=== PATIENT | female | born 1965 | race Asian ===

== ENCOUNTER 2022-01-14 10:38 | Outpatient (CLI) | payer OTHER ==
[2022-01-14 11:33] LABS: PARTIAL THROMBOPLASTIN TIME 26.7 SECONDS (24.5-33.6)
== END 2022-01-14 20:07 | disposition home or self-care (01) ==
LOC: US 10:38
PROVIDERS: ATTEND Family Medicine
DX: R18.8 Other ascites (principal)
CPT/HCPCS: 36415; 49080; 85610; 85730

== ENCOUNTER 2022-01-20 09:16 | Outpatient (CLI) | payer OTHER | END 2022-01-20 19:09 | disposition home or self-care (01) | LOC: US 09:16 | PROVIDERS: ATTEND Family Medicine | DX: R18.8 Other ascites (principal) ==

== ENCOUNTER 2022-02-17 08:46 | Outpatient (CLI) | payer OTHER | END 2022-02-17 21:38 | disposition home or self-care (01) | LOC: US 08:46 | PROVIDERS: ATTEND Family Medicine | DX: R18.8 Other ascites (principal) | CPT/HCPCS: 49082 ==

== ENCOUNTER 2023-05-05 12:05 | Emergency (ER) | payer OTHER ==
[~2023-05-05] VITALS: Ht 154.9 cm; Wt 59.0 kg
[2023-05-05 13:18] LABS: POTASSIUM 3.3 mmol/L (3.6-5.2)
[2023-05-05 13:58] LABS: PLATELET COUNT 186 K/uL (152-353)
[2023-05-05 14:01] LABS: PARTIAL THROMBOPLASTIN TIME 35.9 SECONDS (23.9-36.7)
[2023-05-05 14:28] VITALS: BP 102/41; TEMP 98.9
== END 2023-05-05 14:40 | disposition short-term general hospital (02) ==
LOC: ED 12:05
PROVIDERS: Family Medicine
DX: R18.8 Other ascites (principal); D64.9 Anemia, unspecified; F17.210 Nicotine dependence, cigarettes, uncomplicated; F12.90 Cannabis use, unspecified, uncomplicated
CPT/HCPCS: 36415; 80053; 82140; 83605; 84484; 85027; 85610; 85730; 93005; 99283